=== PATIENT | female | born 1995 | race American Indian/Alaskan Native ===

== ENCOUNTER 2021-02-22 12:29 | Inpatient (IN) | payer OTHER ==
[2021-02-22] MEDS ORDERED: OXYTOCIN DRIP 30,000 MILLIUNITS/500 ML BAG IV ONE (12:35)
[2021-02-22] MEDS ORDERED: LOPERAMIDE 2 MG CAP PO PRN (12:38)
[2021-02-22] MEDS ORDERED: ePHEDrine SULFATE 50 MG/1 ML INJ IV PRN (12:38)
[2021-02-22] MEDS ORDERED: miSOPROStol 200 MCG TAB PR PRN (12:38)
[2021-02-22] MEDS ORDERED: METHYLERGONOVINE MALEATE 0.2 MG/ML VIAL IM PRN (12:38)
[2021-02-22] MEDS ORDERED: TERBUTALINE 1 MG/1 ML INJ SUB-Q PRN (12:38)
[2021-02-22] MEDS ORDERED: OXYTOCIN 10 UNIT/1 ML INJ IM PRN (12:38)
[2021-02-22] MEDS ORDERED: NalbUPHINE 10 MG/1 ML INJ IV PRN (12:38)
[2021-02-22] MEDS ORDERED: ACETAMINOPHEN 325 MG TAB PO PRN ×2 (12:38→12:41)
[2021-02-22] MEDS ORDERED: MINERAL OIL 30 ML ORAL LIQD PO PRN (12:38)
[2021-02-22] MEDS ORDERED: CARBOPROST TROMETHAMINE 250 MCG/1 ML INJ IM PRN (12:38)
[2021-02-22] MEDS ORDERED: LIDOCAINE (2%) 20 MG/1 ML VIAL 20 ML MDV INFILTRATI ONE (12:38)
[2021-02-22] MEDS ORDERED: BUTORPHANOL 2 MG/1 ML INJ IV PRN ×2 (12:38)
[2021-02-22] MEDS ORDERED: LANOLIN/ZINC/DIMETHICONE (LANSINOH) 7 GM TP PRN (12:41)
[2021-02-22] MEDS ORDERED: WITCH HAZEL/ GLYCERIN PAD TP PRN (12:41)
[2021-02-22] MEDS ORDERED: ONDANSETRON 4 MG/2 ML INJ IV PRN (12:41)
[2021-02-22] MEDS ORDERED: diphenhydrAMINE 25 MG CAP PO PRN (12:41)
[2021-02-22] MEDS ORDERED: MAGNESIUM HYDROXIDE (MOM) ORAL LIQD UDC PO PRN (12:41)
[2021-02-22] MEDS ORDERED: HYDROcodone/ACETAMINOPHEN 5-325 MG TAB PO PRN (12:41)
[2021-02-22] MEDS ORDERED: PROMETHAZINE 25 MG RECT SUPP PR PRN (12:41)
[2021-02-22] MEDS ORDERED: PROMETHAZINE 25 MG TAB PO PRN (12:41)
--- NOTE | 2021-02-22 12:43 | History and Physical Report ---
History of Present Illness Date of examination: 02/22/21 Date of admission: 02/22/21 12:29 History of present illness: 26 yo presents as a walk in after a home delivery. no PNR avaiable Past History Past Surgical History: no surgical history - Obstetrical History Expected Date of Delivery: 02/18/21 Actual Gestation: 40 Week(s) 5 Day(s) Medications and Allergies Allergies Allergy/AdvReac Type Severity Reaction Status Date / Time Sulfa (Sulfonamide Allergy Unknown Verified 02/22/21 13:03 Antibiotics) cat dander AdvReac Itching Verified 02/22/21 13:04 dog dander AdvReac Itching Verified 02/22/21 13:04 Home Medications Medication Instructions Recorded Confirmed Last Taken Type No Known Home Medications [No 02/23/21 02/23/21 Unknown History Reported Home Medications] Active Meds: Active Medications Acetaminophen (Acetaminophen 325 Mg Tab) 650 mg PO Q4H PRN PRN Reason: Pain, Mild (1-3) Bisacodyl (Bisacodyl 10 Mg Rect Supp) 10 mg WA BID PRN PRN Reason: Constipation Butorphanol Tartrate (Butorphanol 2 Mg/1 Ml Inj) 1 mg IV Q2H PRN PRN Reason: Pain, Moderate(4-6) LABOR PAIN Butorphanol Tartrate (Butorphanol 2 Mg/1 Ml Inj) 2 mg IV Q2H PRN PRN Reason: Pain , Severe (7-10) Carboprost Tromethamine (Carboprost Tromethamine 250 Mcg/1 Ml Inj) 250 mcg IM ONCE PRN PRN Reason: Uterine Bleeding Ephedrine Sulfate (Ephedrine Sulfate 50 Mg/1 Ml Inj) 10 mg IV Q2M PRN PRN Reason: Hypotension Oxytocin/Sodium Chloride (Pitocin/Ns 30 Unit/500ml) 30 units in 500 mls @ 2 mls/hr IV TITR URMILA; Protocol Lactated Ringer's (Lactated Ringers) 1,000 mls @ 125 mls/hr IV DIRECT URMILA Oxytocin/Sodium Chloride (Pitocin/Ns 30 Unit/500ml) 30 units in 500 mls @ 40 mls/hr IV TITR URMILA; Protocol Clindamycin HCl (Cleocin 900 Mg/50 Ml) 900 mg in 50 mls @ 100 mls/hr IV ONCE ONE; Protocol Stop: 02/22/21 13:08 Lidocaine (Lidocaine (2%) 20 Mg/1 Ml Vial 20 Ml Mdv) 20 ml INFILTRATI ONCE ONE Stop: 02/22/21 12:39 Loperamide HCl (Loperamide 2 Mg Cap) 2 mg PO ONCE PRN PRN Reason: give with Hemabate Magnesium Hydroxide (Magnesium Hydroxide (Mom) Oral Liqd Udc) 30 ml PO HS PRN PRN Reason: Constipation Methylergonovine Maleate (Methylergonovine Maleate 0.2 Mg/Ml Vial) 0.2 mg IM ONCE PRN PRN Reason: Uterine Bleeding Mineral Oil (Mineral Oil 30 Ml Oral Liqd) 30 ml PO QHS PRN PRN Reason: Constipation Misoprostol (Misoprostol 200 Mcg Tab) 800 mcg WA ONCE PRN PRN Reason: Uterine Bleeding Nalbuphine HCl (Nalbuphine 10 Mg/1 Ml Inj) 10 mg IV Q2H PRN PRN Reason: Pain, Moderate (4-6) Ondansetron HCl (Ondansetron 4 Mg/2 Ml Inj) 4 mg IV Q8H PRN PRN Reason: Nausea And Vomiting Oxytocin (Oxytocin 10 Unit/1 Ml Inj) 10 unit IM ONCE PRN PRN Reason: Uterine Bleeding Promethazine HCl (Promethazine 25 Mg Rect Supp) 25 mg WA Q6H PRN PRN Reason: Nausea And Vomiting Promethazine HCl (Promethazine 25 Mg Tab) 25 mg PO Q6H PRN PRN Reason: Nausea And Vomiting Terbutaline Sulfate (Terbutaline 1 Mg/1 Ml Inj) 0.25 mg SUB-Q ONCE PRN PRN Reason: Hyperstimulation/Hypertonicity - Vital Signs Vital signs: Vital Signs Pulse BP 56 L 117/72 02/22/21 12:37 02/22/21 12:37 Temp Pulse Resp BP Pulse Ox 56 L 117/72 02/22/21 12:37 02/22/21 12:37 Results Result Diagrams: 02/23/21 00:48 All other labs normal. Assessment and Plan admit care Aishwarya Pizarro MD
[2021-02-22] MEDS ORDERED: LACTATED RINGERS 1,000 ML IV SCH (12:45)
--- NOTE | 2021-02-22 12:45 | Procedure Note ---
OB Delivery Note - Delivery Date of Delivery: 02/22/21 Surgeon: GARIMA VIERA Estimated blood loss: 200cc - Vaginal Intrapartum events: other(please specify) (Home delivery) Route of delivery: Delivery placenta: spontaneous Delivery cord: 3 umbilical vessels Episiotomy: none Delivery laceration: none Anesthesia: local Delivery comments: Patient delivered at home prior to being brought to the hospital by EMS. I entered the room the patient in the lithotomy position with placenta in place. The placenta delivered spontaneously, intact with three-vessel cord. There were no lacerations The fundus was firm EBL was 200 mL Placenta sent to pathology Mom and baby to recovery in stable condition All sponge needle instrument counts are correct x2 Aishwarya Viera MD
[2021-02-22] MEDS ORDERED: IBUPROFEN 800 MG TAB ONE (12:51)
[2021-02-22] MEDS ORDERED: OXYTOCIN DRIP 30 UNITS/500 ML BAG IV SCH ×2 (13:00)
[2021-02-22] MEDS ORDERED: CLINDAMYCIN 600 MG/50 mL 600 MG/50 ML BAG IV ONE (13:01)
[2021-02-22 15:34] LABS: Hemoglobin 13.4 gm/dl (10.1-14.3); Mean Corpuscular HGB Conc 34 % (30-34); Mean Corpuscular Volume 86 fl (79-97); Platelet Count 214 K/mm3 (140-440); Red Blood Count 4.56 M/mm3 (3.65-5.03); Red Cell Distribution Width 14.1 % (13.2-15.2)
[2021-02-22 19:58] LABS: Hepatitis C Virus Antibody Non-Reactive (NonReactive)
[2021-02-22] MEDS: IBUPROFEN 600 MG TAB PO SCH (23:41)
[2021-02-23 01:19] LABS: Hematocrit 36.5 % (30.3-42.9); Hemoglobin 12.2 gm/dl (10.1-14.3)
[2021-02-23] MEDS: IBUPROFEN 600 MG TAB PO SCH ×3 (06:38→19:20)
--- NOTE | 2021-02-23 12:21 | Progress Note ---
Assessment and Plan A: day 1 S/P . P: Repeat CBC. Do urinalysis. Continue routine care. Subjective - Subjective Date of service: 02/23/21 Principal diagnosis: day 1 S/P Interval history: Patient reports lower back pain; denies flank pain. Patient reports: appetite normal, voiding normally, pain well controlled, flatus, ambulating normally, no dizzy ambulation, no nauseated Monitor: doing well Objective - Vital Signs Latest vital signs: Vital Signs Temp Pulse Resp BP Pulse Ox 02/23/21 08:01 97.7 F 61 18 124/81 100 02/23/21 01:01 97.7 F 58 L 16 101/56 100 02/22/21 23:41 20 02/22/21 21:10 98.3 F 81 18 109/61 100 02/22/21 15:48 97.9 F 63 20 108/63 100 02/22/21 13:23 51 L 114/60 02/22/21 12:52 55 L 123/61 02/22/21 12:37 56 L 117/72 Intake and Output 02/22/21 02/23/21 02/23/21 23:59 07:59 15:59 Intake Total 720 360 Output Total 1050 Balance -330 360 Intake: Oral 480 Intake, Free Water 240 360 Output: Urine 1050 Void 1050 Other: Total, Intake Amount 240 Total, Output Amount 500 # Voids Void 2 - Exam Cardiovascular: Present: Regular rate Lungs: Present: Clear to auscultation Abdomen: Present: normal appearance, soft, normal bowel sounds. Absent: distention, tenderness, guarding, rigidity Uterus: Present: normal, firm, fundal height below umbilicus. Absent: bogginess, tenderness Extremities: Present: normal. Absent: tenderness, edema - Labs Labs: Abnormal lab results 02/22/21 Range/Units 14:52 WBC 18.5 H (4.5-11.0) K/mm3
[2021-02-23 15:50] LABS: Basophils # (Auto) 0.1 K/mm3 (0.0-0.1); Basophils % (Auto) 0.5 % (0.0-1.8); Eosinophils # (Auto) 0.1 K/mm3 (0.0-0.4); Hematocrit 38.3 % (30.3-42.9); Hemoglobin 12.9 gm/dl (10.1-14.3); Lymphocytes # (Auto) 3.2 K/mm3 (1.2-5.4); Lymphocytes % (Auto) 24.3 % (13.4-35.0); Mean Corpuscular HGB Conc 34 % (30-34); Mean Corpuscular Volume 87 fl (79-97); Monocytes # (Auto) 1.4 K/mm3 (0.0-0.8); Monocytes % (Auto) 10.8 % (0.0-7.3); Platelet Count 237 K/mm3 (140-440); Red Blood Count 4.41 M/mm3 (3.65-5.03); Red Cell Distribution Width 14.4 % (13.2-15.2)
[2021-02-23 22:47] LABS: Bilirubin,Urine NEG (Negative); Blood,Urine LG (Negative); Calcium Oxalate Crystals,Urine 1+; Color,Urine Amber (Yellow); Mucus,Urine 3+ /HPF; Urobilinogen,Urine < 2.0 mg/dL (<2.0)
[2021-02-23 22:54] LABS: Amphetamine Screen,Urine PRESUMPTIVE NEGATIVE; Benzodiazepines Screen,Urine PRESUMPTIVE NEGATIVE; Cannabinoid Screen,Urine PRESUMPTIVE POSITIVE; Cocaine Screen,Urine PRESUMPTIVE NEGATIVE; Methadone Screen,Urine PRESUMPTIVE NEGATIVE; Opiate Screen,Urine PRESUMPTIVE NEGATIVE
--- NOTE | 2021-02-24 05:48 | Event Note ---
Date: 02/24/21 Consult to case management for + UDS (marijuana).
[2021-02-24] MEDS: AMOXICILLIN/K CLAV 500/125MG TAB PO SCH ×2 (07:49→11:03)
[2021-02-24] MEDS: IBUPROFEN 600 MG TAB PO SCH (08:03)
--- NOTE | 2021-02-24 09:58 | Discharge Summary ---
Providers - Providers Date of Admission: 02/22/21 12:29 Attending physician: GARIMA VIERA MD 02/24/21 05:45 Consult to Case Management [CONS] Routine Services Needed at Discharge: Refuse Collector Notified:: Case management Was contact made?: No Comment:: Drug screen positive for marijuana Primary care physician: GARIMA VIERA MD Hospitalization Reason for admission: other (home delivery) Disposition: 30 STILL A PATIENT Plan - Provider Discharge Summary Activity: no sex for 6 weeks Diet: routine Instructions: routine Additional instructions: [] Smoking cessation referral if applicable(refer to patient education folder for contact #) [] Refer to [facility] Book[facility] Call your doctor immediately for: * Fever > 100.5 * Heavy vaginal bleeding ( >1 pad per hour) * Severe persistent headache * Shortness of breath * Reddened, hot, painful area to leg or breast * Drainage or odor from incision. * Keep incision clean and dry at all times and follow doctor's instructions regarding bathing/showering - Follow up plan Follow up: GARIMA VIERA MD [Primary Care Provider] - 6 Weeks
[2021-02-24 15:00] VITALS: BP 112/60
== END 2021-02-24 14:40 | disposition home or self-care (01) | DRG 776 ==
LOC: LD 12:29 → OB 15:38
PROVIDERS: ADMIT Obstetrics & Gynecology; ATTEND Obstetrics & Gynecology
PROC: 10E0XZZ Delivery of Products of Conception, External Approach (ICD-10-PCS; principal; 2021-02-22)
DX: Z39.0 Encounter for care and examination of mother immediately after delivery (principal); Z88.2 Allergy status to sulfonamides; J30.81 Allergic rhinitis due to animal (cat) (dog) hair and dander; Z20.822 Contact with and (suspected) exposure to COVID-19
CPT/HCPCS: 36415; 80307; 81001; 85014; 85018; 85025; 85027; 86592; 86706; 86762; 86803; 86850; 86900; 86901; 87086; 87806; 99211; G0378; A6250; G0463; J2590; U0003